=== PATIENT | male | born 2000 | race Caucasian/White ===

== ENCOUNTER 2020-03-22 09:07 | Outpatient (CLI) | payer OTHER | END 2020-03-22 09:13 | disposition home or self-care (01) | LOC: SONOGRAMA 09:07 | PROVIDERS: ATTEND Specialist | DX: N42.89 Other specified disorders of prostate (principal) ==

== ENCOUNTER → 2020-09-19 | Emergency (ER) | payer OTHER ==
[~2020-09-19] VITALS: Ht 172.7 cm; Wt 63.5 kg
[~2020-09-19] MED LIST: AMOX1TAB5 PO
== END | disposition home or self-care (01) ==
LOC: EMR PED 11:18
DX: J02.8 Acute pharyngitis due to other specified organisms (principal)

== ENCOUNTER 2022-01-15 11:12 | Emergency (ER) | payer OTHER ==
[~2022-01-15] VITALS: Ht 172.7 cm; Wt 65.8 kg
[2022-01-15] MEDS ORDERED: AMOXICILLIN500 MG PO (14:37)
== END 2022-01-15 15:04 | disposition home or self-care (01) ==
LOC: ER 11:12
DX: J02.9 Acute pharyngitis, unspecified (principal); Z20.822 Contact with and (suspected) exposure to COVID-19

== ENCOUNTER 2022-02-22 20:28 | Emergency (ER) | payer OTHER ==
[~2022-02-22] VITALS: Ht 172.7 cm; Wt 65.8 kg
[~2022-02-22 20:28] MED LIST changes: +AMOXICILLIN500 MG PO
== END 2022-02-22 23:51 | disposition home or self-care (01) ==
LOC: ER 20:28
DX: R50.9 Fever, unspecified (principal); R51.9 Headache, unspecified; L53.9 Erythematous condition, unspecified; Z20.822 Contact with and (suspected) exposure to COVID-19

== ENCOUNTER 2022-12-23 12:40 | Emergency (ER) | payer OTHER ==
[~2022-12-23] VITALS: Ht 172.7 cm; Wt 65.8 kg
== END 2022-12-23 13:41 | disposition home or self-care (01) ==
LOC: ER 12:40
DX: J03.90 Acute tonsillitis, unspecified (principal); R53.81 Other malaise

== ENCOUNTER → 2023-04-26 | Outpatient (CLI) | payer OTHER | END | disposition home or self-care (01) | LOC: NUCLEAR 08:00 | DX: I30.9 Acute pericarditis, unspecified (principal) ==

== ENCOUNTER 2024-07-01 09:44 | Outpatient (CLI) | payer OTHER | END 2024-07-01 09:48 | disposition home or self-care (01) | LOC: SONOGRAMA 09:44 | PROVIDERS: ATTEND Surgery | DX: N50.9 Disorder of male genital organs, unspecified (principal) ==

== ENCOUNTER 2024-07-05 21:12 | Emergency (ER) | payer OTHER ==
[~2024-07-05] VITALS: Ht 165.1 cm; Wt 70.3 kg
[2024-07-05 22:33] LABS: HEMATOCRIT 43.5 % (39.0-48.0); HEMOGLOBIN 14.9 g/dL (13-16.00); MEAN CELL VOLUME 88.4 fL (80.0-100.00); MEAN CORPUSCULAR HEMOGLOBIN 30.2 pg (27.00-32.0); MEAN CORPUSCULAR HGB CONC 34.2 g/dl (32.0-36.0); PLATELET COUNT 242 K/uL (150-450); RED BLOOD COUNT 4.92 M/uL (4.00-6.00); RED CELL DISTRIBUTION WIDTH 13.3 % (11.5-14.5)
[2024-07-05] MEDS ORDERED: ZITHROMAX500 MG PO (23:58)
== END 2024-07-06 00:14 | disposition home or self-care (01) ==
LOC: ER 21:14
PROVIDERS: Preventive Medicine Public Health & General Preventive Medicine
DX: J06.9 Acute upper respiratory infection, unspecified (principal); Z20.822 Contact with and (suspected) exposure to COVID-19